=== PATIENT | male | born 1960 | race Caucasian/White ===

== ENCOUNTER 2017-11-28 12:05 | Day surgery (SDC) | payer OTHER ==
[2017-11-28] MEDS ORDERED: LIDOCAINE 2% MDV 20 ML VIAL As Ordered (13:01)
[2017-11-28] MEDS ORDERED: PROPOFOL 200 MG/20 ML VIAL As Ordered ×2 (13:01→13:06)
== END 2017-11-28 13:51 | disposition home or self-care (01) ==
LOC: M OPP 12:05
DX: Z12.11 Encounter for screening for malignant neoplasm of colon (principal); Z86.010 Personal history of colon polyps; Z80.0 Family history of malignant neoplasm of digestive organs; D12.4 Benign neoplasm of descending colon; D12.2 Benign neoplasm of ascending colon; I10 Essential (primary) hypertension; E78.5 Hyperlipidemia, unspecified; Z96.652 Presence of left artificial knee joint; Z79.899 Other long term (current) drug therapy
CPT/HCPCS: 45385

== ENCOUNTER → 2021-04-27 | Outpatient (CLI) | payer OTHER ==
[~2021-04-27] MED LIST: ACET65TA OR; AMLO1TAB24 PO; ATOR1TAB19 PO; COUM1TAB17 OR; GLUC500T3 OR; KEFL500C OR; MULTIVIT PO; PERC7.5T8 OR
--- NOTE | 2021-04-27 15:00 | REP ---
INDICATION: KIDNEY CYSTS. COMPARISON: None. FINDINGS: Multiple ultrasonographic images of the right kidney show the right kidney to measure 12.4 x 6.7 x 4.9 cm.. The renal cortical echotexture is unremarkable. There are no masses. There is good corticomedullary differentiation. There is no hydronephrosis. There are no perinephric fluid collections. Multiple ultrasonographic images of the left kidney show the left kidney to measure 12.8 x 5.7 x 6.2 cm.. The renal cortical echotexture is unremarkable. There are no solid masses. There are 3 anechoic structures present 1 measures 1.6 x 1.4 x 1 cm another 1.1 x 0.8 x 1.1 cm and the 3rd, 5 x 4 x 4.6 cm. There is good corticomedullary differentiation. There is no hydronephrosis. There are no perinephric fluid collections. IMPRESSION: Left renal cysts as described above. Since have gotten larger and 1 is septated consider repeat pre and postcontrast enhanced CT so it can be compared to the prior examination of 08/17/2015. <Electronically signed by Kamron Montenegro > 04/27/21 [id number]
== END ==
LOC: M RAD 13:05
PROVIDERS: ATTEND Internal Medicine
DX: N28.1 Cyst of kidney, acquired (principal)

== ENCOUNTER → 2021-05-12 | Outpatient (CLI) | payer OTHER ==
--- NOTE | 2021-05-12 10:11 | REP ---
INDICATION: MARIKA OF UNCERTAIN BEHAVIOR OF LT KIDNEY. COMPARISON: 08/17/2015 and 05/29/2012 TECHNIQUE: Standard helical technique before and after the intravenous administration of 100 cc Isovue 370. FINDINGS: The lung bases are clear and unchanged. The pre contrast enhanced portion examination shows hepatic and splenic densities to be within normal limits. There are no choleiths or nephroliths. Seen arising from the inferior pole of the left kidney projecting medially there is a round 4.5 cm sized low-density structure which has water density Hounsfield unit readings. The contrast-enhanced portion examination shows no evidence of perceptible enhancement of the cystic lesion. There are no septations or mural nodules. There are no abnormal calcifications. Also seen in the left kidney there is a round 1.7 cm sized focal area of decreased density faintly visible on the noncontrast enhanced exam and also having water density Hounsfield unit readings with no perceptible enhancement, septations, or mural nodules. There are no enhancing renal masses on either side. The liver, gallbladder, spleen, pancreas, and adrenal glands are within normal limits. The abdominal aorta and para-aortic regions are within normal limits. The bowel loops and the mesenteries are within normal limits. There is no adenopathy. Bone window technique throughout the exam shows no significant change in appearance of the osseous structures. IMPRESSION: There are 2 Bosniak class 1 simple left renal cysts as described above. These have gotten only slightly larger in size compared to the prior exam of 08/17/2015. <Electronically signed by Kamron Montenegro > 05/12/21 [id number]
== END ==
LOC: M PLAIMG 09:01
PROVIDERS: ATTEND Internal Medicine
DX: D41.02 Neoplasm of uncertain behavior of left kidney (principal)

== ENCOUNTER → 2021-10-10 | Outpatient (REF) | payer OTHER | LOC: M LAB REF 16:18 | PROVIDERS: ATTEND Internal Medicine | DX: G60.9 Hereditary and idiopathic neuropathy, unspecified (principal) ==

== ENCOUNTER → 2022-09-24 | Outpatient (CLI) | payer OTHER | LOC: M RAD 09:54 | PROVIDERS: ATTEND Physician Assistant | DX: M79.604 Pain in right leg (principal); M25.461 Effusion, right knee ==

== ENCOUNTER → 2022-09-24 | Outpatient (CLI) | payer OTHER ==
[2022-09-24 11:44] LABS: BASO # 0.1 10^3/uL (0.0-0.2); EOS # 0.1 10^3/uL (0.0-0.5); EOS % 1.8 % (0.0-3.0); HEMATOCRIT 44.8 % (42.0-52.0); HEMOGLOBIN 14.9 g/dl (13.5-17.5); LYMPH # 1.6 10^3/uL (1.5-5.0); LYMPH % 22.7 % (24.0-44.0); MEAN CORPUSCULAR HEMOGLOBIN 31.4 pg (27.0-33.0); MEAN CORPUSCULAR HGB CONC 33.3 g/dl (32.0-36.5); MEAN CORPUSCULAR VOLUME 94.3 fl (80.0-96.0); MONO # 0.6 10^3/uL (0.0-0.8); MONO % 8.5 % (2.0-8.0); NEUTROPHILS # 4.7 10^3/uL (1.5-8.5); NEUTROPHILS % 65.6 % (36.0-66.0); PLATELET COUNT, AUTOMATED 218 10^3/uL (150-450); RED BLOOD COUNT 4.75 10^6/uL (4.30-6.10); WHITE BLOOD COUNT 7.2 10^3/uL (4.0-10.0)
[2022-09-24 12:14] LABS: RHEUMATOID FACTOR QUANT < 3.5 IU/ML (<14); URIC ACID 3.8 MG/DL (3.7-9.2)
[2022-09-24 12:40] LABS: ERYTHROCYTE SEDIMENTATION RATE 5 mm/hr (0-20)
[2022-09-25 15:08] LABS: ANTINUCLEAR ANTIBODIES DIRECT Negative (Negative)
== END ==
LOC: M LAB 11:09
PROVIDERS: ATTEND Physician Assistant
DX: M17.11 Unilateral primary osteoarthritis, right knee (principal)

== ENCOUNTER 2023-02-21 10:06 | Day surgery (SDC) | payer OTHER ==
[~2023-02-21] VITALS: Ht 182.9 cm; Wt 93.3 kg
[~2023-02-21 10:06] MED LIST changes: +ALLE24TA7 PO; +GABA-282 PO; +NS 1,000 ML IV ONE
[2023-02-21] MEDS ORDERED: propofoL 200 MG/20 ML VIAL As Ordered ONE (11:41)
[2023-02-21] MEDS ORDERED: LIDOCAINE 2% 100MG/5ML SDV (FOR ANES.) As Ordered ONE (11:41)
[2023-02-21 12:50] VITALS: BP 135/79
== END 2023-02-21 12:45 | disposition home or self-care (01) ==
LOC: M OPP 10:06
PROVIDERS: ATTEND Surgery
DX: Z12.11 Encounter for screening for malignant neoplasm of colon (principal); Z86.010 Personal history of colon polyps; Z80.0 Family history of malignant neoplasm of digestive organs; D12.6 Benign neoplasm of colon, unspecified; K57.30 Diverticulosis of large intestine without perforation or abscess without bleeding; F17.290 Nicotine dependence, other tobacco product, uncomplicated; Z79.02 Long term (current) use of antithrombotics/antiplatelets; Z79.891 Long term (current) use of opiate analgesic; Z79.899 Other long term (current) drug therapy

== ENCOUNTER → 2023-12-09 | Outpatient (CLI) | payer OTHER ==
[~2023-12-09] MED LIST changes: -NS 1,000 ML IV ONE
== END ==
LOC: M CARPUL 08:59
PROVIDERS: ATTEND Internal Medicine
DX: R01.1 Cardiac murmur, unspecified (principal)

== ENCOUNTER → 2024-05-21 | Outpatient (CLI) | payer OTHER | LOC: M RAD 07:50 | PROVIDERS: ATTEND Internal Medicine | DX: R42 Dizziness and giddiness (principal) ==